=== PATIENT | male | born 1950 | race Caucasian/White ===

== ENCOUNTER → 2021-10-02 | Outpatient (REF) | payer MEDICARE, OTHER ==
[~2021-10-02] MED LIST: AMLO1TAB25 PO; CIPR-249 PO; COLA100C5 PO; LISI5TAB11 PO; OXYC1TAB23 PO; ROSU5TAB5 PO
== END ==
LOC: M SMT PRO 09:12
PROVIDERS: ATTEND Urology
DX: C61 Malignant neoplasm of prostate (principal)
CPT/HCPCS: 55700; 76942; G0416

== ENCOUNTER → 2021-11-14 | Outpatient (REF) | payer MEDICARE, OTHER ==
[~2021-11-14] MED LIST changes: -CIPR-249 PO; -COLA100C5 PO; -OXYC1TAB23 PO
== END ==
LOC: M SMT 13:00
PROVIDERS: ATTEND Urology
DX: Z01.818 Encounter for other preprocedural examination (principal); C61 Malignant neoplasm of prostate; N39.0 Urinary tract infection, site not specified

== ENCOUNTER → 2021-11-14 | Outpatient (CLI) | payer MEDICARE, OTHER ==
[~2021-11-14] MED LIST changes: +CIPR-249 PO; +COLA100C5 PO; +OXYC1TAB23 PO
== END ==
LOC: M LABSMTC 09:23
PROVIDERS: ATTEND Anesthesiology
DX: Z01.812 Encounter for preprocedural laboratory examination (principal); Z20.822 Contact with and (suspected) exposure to COVID-19
CPT/HCPCS: 87086; U0003

== ENCOUNTER 2021-11-19 08:45 | Inpatient (IN) | payer MEDICARE, OTHER ==
[~2021-11-19] VITALS: Ht 170.2 cm; Wt 93.0 kg
[~2021-11-19 08:45] MED LIST changes: -CIPR-249 PO; -COLA100C5 PO; +HEPARIN SOD (PORCINE) 5000UNITS/ML 1ML VIAL/SYRINGE SQ ONE; +LR 1,000 ML IV ONE; -OXYC1TAB23 PO; +ceFAZolin SOD 2 GM in IV 1 EA IV ONE
[2021-11-19] MEDS ORDERED: MIDAZOLAM INJ 2MG/2ML VIAL (J2250 PER 1MG) As Ordered ONE (09:17)
[2021-11-19] MEDS ORDERED: fentaNYL 250 MCG/5 ML INJECTION As Ordered ONE (09:17)
[2021-11-19] MEDS ORDERED: LIDOCAINE 2% 100MG/5ML SDV (FOR ANES.) As Ordered ONE ×6 (09:18→09:26)
[2021-11-19] MEDS ORDERED: ONDANSETRON 4MG/2ML VIAL As Ordered ONE ×3 (09:18→09:30)
[2021-11-19] MEDS ORDERED: dexameTHASONE 4 MG/ML 1ML VIAL (J1100 PER 1MG) As Ordered ONE ×2 (09:18→09:27)
[2021-11-19] MEDS ORDERED: ROCURONIUM BROMIDE 50 MG/5 ML VIAL As Ordered ONE ×3 (09:18→13:25)
[2021-11-19] MEDS ORDERED: SUGAMMADEX SODIUM 500 MG/5 ML VIAL (BRIDION) As Ordered ONE (09:18)
[2021-11-19] MEDS ORDERED: propofoL 200 MG/20 ML VIAL As Ordered ONE ×2 (09:18→09:34)
[2021-11-19] MEDS ORDERED: ACETAMINOPHEN 1000MG 100ML IV BTL (OFIRMEV) (J0131 PER 10MG) As Ordered ONE (09:31)
[2021-11-19] MEDS ORDERED: LIDOCAINE 1% SDV 30ML VIAL As Ordered ONE (12:52)
[2021-11-19] MEDS ORDERED: BUPIVACAINE HCL 0.25% 30ML VIAL As Ordered ONE (12:52)
[2021-11-19] MEDS ORDERED: PERCOCET 5MG/325MG TAB PO PRN ×2 (13:20)
[2021-11-19] MEDS ORDERED: ACETAMINOPHEN TAB 650MG DOSE (2X325MG) PO PRN (13:20)
[2021-11-19] MEDS ORDERED: NS 1,000 ML IV SCH (13:20)
[2021-11-19] MEDS ORDERED: ONDANSETRON 4MG/2ML VIAL IV PRN ×2 (13:20→18:20)
[2021-11-19] MEDS ORDERED: PILL CUTTER 1 EACH XX PRN (13:55)
[2021-11-19] MEDS ORDERED: GLYCOPYRROLATE INJ 0.2 MG/ML 2 ML VIAL As Ordered ONE (14:23)
[2021-11-19] MEDS ORDERED: ceFAZolin 2 GM/D5W 50 ML IV BAG (J0690 PER 500MG) As Ordered ONE (17:22)
[2021-11-19] MEDS ORDERED: LR 1,000 ML IV SCH (18:20)
[2021-11-19] MEDS ORDERED: oxyCODONE 5MG TAB PO PRN (18:20)
[2021-11-19] MEDS ORDERED: fentaNYL 100 MCG/2 ML INJECTION IV PRN (18:20)
[2021-11-19 18:57] LABS: HEMATOCRIT 41.9 % (42.0-52.0); HEMOGLOBIN 13.8 g/dl (13.5-17.5); MEAN CORPUSCULAR HEMOGLOBIN 29.4 pg (27.0-33.0); MEAN CORPUSCULAR HGB CONC 32.9 g/dl (32.0-36.5); MEAN CORPUSCULAR VOLUME 89.1 fl (80.0-96.0); PLATELET COUNT, AUTOMATED 177 10^3/uL (150-450); WHITE BLOOD COUNT 8.4 10^3/uL (4.0-10.0)
[2021-11-19 19:05] VITALS: BP 117/60
[2021-11-19 19:17] LABS: CALCIUM LEVEL 8.6 MG/DL (8.8-10.2); CREATININE FOR GFR 1.51 MG/DL (0.70-1.30); GLOMERULAR FILTRATION RATE 48.7 (>42); POTASSIUM SERUM 5.1 MEQ/L (3.5-5.1)
[2021-11-19 19:30] VITALS: BP 136/68
[2021-11-19 20:30] VITALS: BP 135/67
[2021-11-19] MEDS: DOCUSATE SODIUM 100MG CAPSULE PO SCH (20:45)
[2021-11-19] MEDS: ROSUVASTATIN 10 MG TAB (CRESTOR) PO SCH (20:45)
[2021-11-19] MEDS: lisinopriL 5 MG TAB PO SCH (20:45)
[2021-11-19] MEDS: ceFAZolin SOD 1 GM in D5W MINI-BAG PLUS 50 ML IV SCH (21:17)
[2021-11-19] MEDS: HEPARIN SOD (PORCINE) 5000UNITS/ML 1ML VIAL/SYRINGE SC SCH (21:17)
[2021-11-19 21:30] VITALS: BP 146/76
[2021-11-19 22:30] VITALS: BP 145/76
[2021-11-19 23:30] VITALS: BP 143/77
[2021-11-20 03:45] VITALS: BP 143/77
[2021-11-20] MEDS: HEPARIN SOD (PORCINE) 5000UNITS/ML 1ML VIAL/SYRINGE SC SCH ×3 (05:14→20:53)
[2021-11-20] MEDS: ceFAZolin SOD 1 GM in D5W MINI-BAG PLUS 50 ML IV SCH (05:14)
[2021-11-20 06:19] LABS: HEMATOCRIT 43.4 % (42.0-52.0); HEMOGLOBIN 14.5 g/dl (13.5-17.5); MEAN CORPUSCULAR HEMOGLOBIN 29.5 pg (27.0-33.0); MEAN CORPUSCULAR HGB CONC 33.4 g/dl (32.0-36.5); MEAN CORPUSCULAR VOLUME 88.4 fl (80.0-96.0); PLATELET COUNT, AUTOMATED 183 10^3/uL (150-450); RED BLOOD COUNT 4.91 10^6/uL (4.30-6.10); WHITE BLOOD COUNT 9.9 10^3/uL (4.0-10.0)
[2021-11-20 06:46] LABS: BLOOD UREA NITROGEN 16 MG/DL (7-18); CALCIUM LEVEL 8.3 MG/DL (8.8-10.2); CARBON DIOXIDE LEVEL 25 MEQ/L (21-32); CHLORIDE LEVEL 106 MEQ/L (98-107); CREATININE FOR GFR 1.26 MG/DL (0.70-1.30); GLOMERULAR FILTRATION RATE > 60.0 (>42); GLUCOSE, FASTING 148 MG/DL (70-100); POTASSIUM SERUM 4.3 MEQ/L (3.5-5.1); SODIUM LEVEL 137 MEQ/L (136-145)
[2021-11-20 07:49] VITALS: BP 140/70
[2021-11-20] MEDS: DOCUSATE SODIUM 100MG CAPSULE PO SCH ×2 (09:18→20:10)
[2021-11-20] MEDS: FLUBLOK(EGG FREE)(QUAD)INFLUENZA VACC 0.5ML SYRINGE 18YRS & OLDER IM ONE ×2 (09:25→12:53)
[2021-11-20] MEDS ORDERED: KETOROLAC 30 MG/ML 1ML VIAL IV PRN (09:30)
[2021-11-20 10:00] VITALS: BP 134/77
[2021-11-20] MEDS ORDERED: KCL 20MEQ IN D5/0.45NS 1000ML 1,000 ML IV SCH (13:15)
[2021-11-20 14:00] VITALS: BP 145/81
[2021-11-20] MEDS ORDERED: FAMOTIDINE IV BAG 20 MG in IV 1 EA IV ONE (14:00)
[2021-11-20] MEDS ORDERED: CIPROFLOXACIN 500MG TABLET PO SCH (14:00)
[2021-11-20] MEDS: METOCLOPRAMIDE INJ 10MG/2ML VIAL (J2765 PER 1) IV SCH ×2 (14:52→20:10)
[2021-11-20 18:00] VITALS: BP 146/81
[2021-11-20] MEDS ORDERED: SIMETHICONE 80MG CHEW TAB PO ONE (20:05)
[2021-11-20] MEDS ORDERED: MAALOX 30 ML SUSP *UDC PO ONE (20:05)
[2021-11-20] MEDS: ROSUVASTATIN 10 MG TAB (CRESTOR) PO SCH (20:11)
[2021-11-20] MEDS: lisinopriL 5 MG TAB PO SCH (20:11)
[2021-11-20 22:00] VITALS: BP 143/81
[2021-11-21] MEDS: METOCLOPRAMIDE INJ 10MG/2ML VIAL (J2765 PER 1) IV SCH ×2 (01:54→08:27)
[2021-11-21 02:00] VITALS: BP 143/81
[2021-11-21 06:00] VITALS: BP 140/80
[2021-11-21] MEDS ORDERED: CIPROFLOXACIN 500MG TABLET PO SCH (06:00)
[2021-11-21] MEDS: HEPARIN SOD (PORCINE) 5000UNITS/ML 1ML VIAL/SYRINGE SC SCH (06:08)
[2021-11-21 06:12] LABS: HEMATOCRIT 42.7 % (42.0-52.0); HEMOGLOBIN 14.4 g/dl (13.5-17.5); MEAN CORPUSCULAR HEMOGLOBIN 29.5 pg (27.0-33.0); MEAN CORPUSCULAR HGB CONC 33.7 g/dl (32.0-36.5); MEAN CORPUSCULAR VOLUME 87.5 fl (80.0-96.0); PLATELET COUNT, AUTOMATED 204 10^3/uL (150-450); RED BLOOD COUNT 4.88 10^6/uL (4.30-6.10); WHITE BLOOD COUNT 13.9 10^3/uL (4.0-10.0)
[2021-11-21 06:51] LABS: CALCIUM LEVEL 8.7 MG/DL (8.8-10.2); CREATININE FOR GFR 1.4 MG/DL (0.70-1.30); GLOMERULAR FILTRATION RATE 53.2 (>42)
[2021-11-21] MEDS ORDERED: BISACODYL 10 MG SUPP PR ONE (08:00)
[2021-11-21] MEDS: DOCUSATE SODIUM 100MG CAPSULE PO SCH (08:27)
[2021-11-21] MEDS ORDERED: FAMOTIDINE 20 MG TAB PO SCH (09:00)
[2021-11-21 10:00] VITALS: BP 124/71
[2021-11-21] MEDS ORDERED: CIPR-249 PO (13:50)
[2021-11-21] MEDS ORDERED: OXYC1TAB23 PO (13:50)
[2021-11-21] MEDS ORDERED: COLA100C5 PO (13:50)
[2021-11-21 14:00] VITALS: BP 148/85
== END 2021-11-21 15:44 | DRG 707 ==
LOC: M OR 11:51 → M MSPAV 18:55
PROVIDERS: ADMIT Urology; ATTEND Urology
PROC: 07BC4ZZ Excision of Pelvis Lymphatic, Percutaneous Endoscopic Approach (ICD-10-PCS; 2021-11-19)
PROC: 8E0W4CZ Robotic Assisted Procedure of Trunk Region, Percutaneous Endoscopic Approach (ICD-10-PCS; 2021-11-19)
PROC: 0VT04ZZ Resection of Prostate, Percutaneous Endoscopic Approach (ICD-10-PCS; principal; 2021-11-19 13:45)
DX: C61 Malignant neoplasm of prostate (principal); K91.89 Other postprocedural complications and disorders of digestive system; Z87.891 Personal history of nicotine dependence

== ENCOUNTER → 2023-05-20 | Outpatient (CLI) | payer MEDICARE, OTHER ==
[~2023-05-20] MED LIST changes: +BICA50TA9 PO; +CIPR-249 PO; +COLA100C5 PO; -HEPARIN SOD (PORCINE) 5000UNITS/ML 1ML VIAL/SYRINGE SQ ONE; -LR 1,000 ML IV ONE; +OXYC1TAB23 PO; -ceFAZolin SOD 2 GM in IV 1 EA IV ONE
== END ==
LOC: M ONCR 07:57
PROVIDERS: ATTEND General Practice
DX: C61 Malignant neoplasm of prostate (principal); Z71.2 Person consulting for explanation of examination or test findings; Z79.899 Other long term (current) drug therapy; Z80.42 Family history of malignant neoplasm of prostate; Z87.891 Personal history of nicotine dependence; Z90.79 Acquired absence of other genital organ(s)

== ENCOUNTER → 2023-05-26 | Outpatient (CLI) | payer MEDICARE, OTHER ==
[~2023-05-26] MED LIST changes: +LEUPROLIDE 45MG SYRINGE KIT (LUPRON DEPOT) (FOR ONCOLOGY) IM ONE
== END ==
LOC: M ONCR 08:58
PROVIDERS: ATTEND General Practice
DX: C61 Malignant neoplasm of prostate (principal)
CPT/HCPCS: 96402; G0463; J9217

== ENCOUNTER → 2023-07-14 | Outpatient (RCR) | payer MEDICARE, OTHER ==
[~2023-07-14] MED LIST changes: -LEUPROLIDE 45MG SYRINGE KIT (LUPRON DEPOT) (FOR ONCOLOGY) IM ONE
== END ==
LOC: M ONCR 06-15 13:02
PROVIDERS: ATTEND General Practice
DX: Z51.0 Encounter for antineoplastic radiation therapy (principal); C61 Malignant neoplasm of prostate

== ENCOUNTER 2023-07-28 07:43 | Outpatient (RCR) | payer MEDICARE, OTHER | END 2023-08-13 | LOC: M ONCR 07:43 | PROVIDERS: ATTEND General Practice | DX: Z51.0 Encounter for antineoplastic radiation therapy (principal); C61 Malignant neoplasm of prostate ==

== ENCOUNTER → 2023-10-30 | Outpatient (CLI) | payer MEDICARE, OTHER | LOC: M ONCR 08:13 | PROVIDERS: ATTEND General Practice | DX: C61 Malignant neoplasm of prostate (principal); Z71.2 Person consulting for explanation of examination or test findings; Z79.899 Other long term (current) drug therapy; Z87.891 Personal history of nicotine dependence; Z92.29 Personal history of other drug therapy; Z92.3 Personal history of irradiation ==

== ENCOUNTER → 2024-11-01 | Outpatient (CLI) | payer MEDICARE, OTHER ==
[~2024-11-01] MED LIST changes: +BICA50TA4 PO; -BICA50TA9 PO; +ROSU5TAB49 PO; -ROSU5TAB5 PO
== END ==
LOC: M ONCR 08:14
PROVIDERS: ATTEND General Practice
DX: C61 Malignant neoplasm of prostate (principal); Z92.3 Personal history of irradiation; Z92.29 Personal history of other drug therapy; Z87.891 Personal history of nicotine dependence; Z79.899 Other long term (current) drug therapy